=== PATIENT | male | born 1940 | race Caucasian/White ===

== ENCOUNTER → 2020-07-17 | Outpatient (CLI) | payer MEDICARE ==
--- NOTE | 2020-07-17 10:18 | RAD ---
MR#: [id number] Date of Study: 07/17/2020 Ordering Physician: BEBETO FUENTES, Referring Physician: BEBETO FUENTES, Tech: APPROVED REPORT Patient Location: OUT-PATIENT Indications LEG PAIN Risk Factors Grayscale images of the bilateral lower extremity arterial vessels demonstrate mild to moderate diffu se atherosclerosis. The bilateral peroneal arteries appear to be severely diseased with diminished v elocities. Otherwise mostly triphasic waveforms and biphasic waveforms from the common femoral arter y to the popliteal segment. Below the knee there is two-vessel runoff with moderate disease in the l eft side and no significant occlusion on the right side. VELOCITY AND DOPPLER WAVEFORM ANALYSIS RIGHT cm/secWaveformSeverity LEFT cm/secWaveform Severity pCFA 162.0TriphasicpCFA 190.0Biphasic Prof Fem Art. 116.0BiphasicProf Fem Art. 155.0Biphasic Fem Art Prox. 194.0TriphasicFem Art Prox. 148.0Biphasic Fem Art Mid. 128.0BiphasicFem Art Mid. 118.0Biphasic Fem Art Dist. 161.0BiphasicFem Art Dist. 89.0Biphasic Pop Art(Fossa) 114.0BiphasicPop Art(AK) 141.0Biphasic MOLD CAPPER Prox. 56.0MonophasicPTA Prox. 131.0Biphasic MOLD CAPPER Dist. 42.0MonophasicPTA Dist. 66.0Monophasic Per Art Dist.Per Art Dist.25.0Monophasic MYRIAM Prox. 62.0BiphasicATA Prox. 92.0Biphasic DPA 83BiphasicDPA 137Biphasic Critical Notification Critical Value: No <Conclusion> 1. No significant stenosis noted above the knee bilaterally with two-vessel runoff below the knees. 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
--- NOTE | 2020-07-17 10:20 | RAD ---
MR#: [id number] Date of Study: 07/17/2020 Ordering Physician: BEBETO UFENTES, Referring Physician: BEBETO FUENTES, Tech: APPROVED REPORT Patient Location: OUT-PATIENT Exam Type: Ankle to Brachial Index Indications Right side brachial pressure 172, ASSISTANT EDITOR 178, DPA 174 Left side brachial pressure 171, ASSISTANT EDITOR 157, DPA 162 Right MEGAN 1.0 Left MEGAN 0.9 Pressures/Indices RightABI LeftABI Brachial 580fnSe5.0Brachial 527ovVd0.9 Ankle(PT) 178mmHgAnkle(PT) 157mmHg Ankle(DP) 174mmHgAnkle(DP) 162mmHg Critical Notification Critical Value: No <Conclusion> 1. Normal bilateral MEGAN Signed by : Bebeto Fuentes, Electronically Approved : 07/17/2020 10:19:48
== END ==
LOC: US 08:52
PROVIDERS: ATTEND Internal Medicine Cardiovascular Disease
DX: I70.203 Unspecified atherosclerosis of native arteries of extremities, bilateral legs (principal)
CPT/HCPCS: 93922; 93925

== ENCOUNTER → 2020-12-11 | Outpatient (CLI) | payer MEDICARE ==
--- NOTE | 2020-12-11 16:42 | RAD ---
Right lower extremity venous Doppler ultrasound History: Reason: RLE PAIN AND TIGHTNESS IN CALF / Comparison: None. Procedure: Color flow Doppler, Doppler spectral analysis, and 2D images are obtained with and without compression in the area of the common femoral vein, superficial femoral vein - femoral vein junction , main femoral vein (superficial femoral vein) and popliteal vein. Veins of the proximal calf are als o imaged. Findings: There is normal color flow, augmentation, and compressibility of all visualized vein segments. No pérez dence of deep venous thrombus is present. There is complex fluid in the popliteal fossa measuring 4.2 x 2.9 x 1 cm. IMPRESSION: No evidence of right lower extremity deep venous thrombosis. Electronically signed by: Marco Pacheco MD (12/11/2020 4:40 PM) [id number]
== END ==
LOC: US 15:40
PROVIDERS: ATTEND Family Medicine
DX: M79.604 Pain in right leg (principal); R79.1 Abnormal coagulation profile
CPT/HCPCS: 93971

== ENCOUNTER → 2021-07-09 | Outpatient (CLI) | payer MEDICARE ==
[~2021-07-09] MED LIST: REGADENOSON 0.4 MG/5 ML DISP.SYRIN. IV ONE
--- NOTE | 2021-07-09 12:37 | RAD ---
Site ID: [id number] EXAMINATION: US DPLX CAROTID BILAT. Technique: Carotid arterial vascular ultrasound performed with pantoja scale and color doppler, wavefor m interrogation and flow velocity evaluation. INDICATION: 81 years Male Reason: CAROTID STENOSIS, HTN, HX OF SMOKING Findings: Color Doppler demonstrates patency of the common, internal, and external carotid arteries bilaterally . There is antegrade flow in the vertebral arteries demonstrated. Grayscale images demonstrate multifocal bilateral calcified atherosclerotic plaque along the carotid bifurcation more on the right side. Peak systolic velocity in the right ICA is 389 cm/s on the left side is 261 cm/s. ICA/CCA ratio is 2.7 on the right and 1.9 on the left. NOTE: Method of estimating the degree of stenosis is based on velocity criteria as defined by the [employer] i[employer] of Radiologists in Ultrasound Consensus Conference Radiology 2003. IMPRESSION: 1. There is significant elevated velocities seen in the right ICA up to 389 cm/s. Although the ICA ov er CCA ratio is a 2.7, the velocity measurement may suggest the ICA stenosis is more than 70 percent. 2. Elevated velocity in the left ICA with the underlying stenosis likely within the range of 50-69 pe rcent. 3. Further evaluation with CTA of the neck is recommended. Electronically signed by: Avni Soto MD (07/09/2021 12:34 PM) [id number]
--- NOTE | 2021-07-09 13:04 | RAD ---
MR#: [id number] Date of Study: 07/09/2021 Ordering Physician: BEBETO FUENTES, Referring Physician: NIKOLAS ROY Tech: RT Sherry (R) (N) APPROVED REPORT Test Type: Pharmacological Stress Nurse/Tech: Moo / Evon Weeks Test Indications: CAD Cardiac History: Hypertension, 3 previous stents, Bypass 1995 Medications: See EHR Resting Heart Rate: 55 bpm Resting Blood Pressure: 196/68mmHg Pretest Chest Pain: None Pharm. Details Pharmacologic stress testing was performed using 0.4mg per 5ml of regadenoson given intravenously ove r 7-10 seconds. Stress Symptoms Dyspnea POST EXERCISE Reason for Termination: Infusion complete Max HR: 107 bpm Max Blood Pressure: 187/61mmHg Blood Pressure response to exercise: Normal blood pressure response during stress. Heart Rate response to exercise: Increased Chest Pain: No. Arrhythmia: No. ST Change: No. INTERPRETATION Stress EKG Conclusion: Baseline EKG showed sinus rhythm. No ischemic changes at peak stress. No arr hythmias. Imaging Protocol IMAGE PROTOCOL: Rest Tc-99m/stress Tc-99m 1 day Rest: Stress: Viability: Radiopharm.Tc99m VcoznryqoVz14h Sestamibi Wskv2cEv 33mCi Duration 15min. 15min. Img Date 07/09/2021 07/09/2021 Inj-Img Tobf06tum. 55min. Rest Admin Site:IV - Left AntecubitalAdministrator: RT Sherry (R)(N) Stress Admin Site: IV - Left AntecubitalAdministrator: RT Sherry (R)(N) STRESS DATA End Diast. Vol.113.0mlAv. Heart Rate78.0bpm End Syst. Vol.32.0mlCO Index BSA0.0L/min Myocardial Bvrg468.0gEject. Zsvuxnum26.0% Stress Rates Pk. Fill Rate3.01EDV/secLVtime Pk. Fill 206.69msec Pk. Empty Rate4.60ESV/secLVtime Pk. Obyyy053.48msec 07/29 Pk. Fill1.06EDV/sec Stress Scores Regional WT1.00Summed WT3.00 Regional WM0.00Summed WM1.00 Study quality was good. Left Ventricular size was Normal at Rest and Stress. Lung uptake was . Left Ventricular ejection fraction is 72%. The rest and stress images show normal perfusion, normal contraction and thickening. LV Perf. Quant 17 Seg. SSS3.00 17 Seg. SRS0.00 17 Seg. SDS3.00 Stress Defect Extent (% LAD)0.00Rest Defect Extent (% LAD)0.00Rev. Defect Extent (% LAD)0.00 Stress Defect Extent (% LCX) 18.80Rest Defect Extent (% LCX)0.00Rev. Defect Extent (% LCX)18.80 Stress Defect Extent (% RCA)0.00Rest Defect Extent (% RCA)0.00Rev. Defect Extent (% RCA)0.00 Stress Defect Extent (% ADRIANA)4.30Rest Defect Extent (% ADRIANA)0.00Rev. Defect Extent (% ADRIANA)4.10 Conclusion 1. Regadenoson cardioisotope stress test did not show any evidence of ischemia or infarct. 2. Normal left ventricular systolic function with ejection fraction calculated at 72%. 3. Low risk for cardiac events. Signed by : Demario Joy, Electronically Approved : 07/09/2021 13:04:11
== END ==
LOC: NM 07:53
PROVIDERS: ATTEND Internal Medicine Cardiovascular Disease
DX: I65.23 Occlusion and stenosis of bilateral carotid arteries (principal); I25.10 Atherosclerotic heart disease of native coronary artery without angina pectoris; I10 Essential (primary) hypertension; Z87.891 Personal history of nicotine dependence
CPT/HCPCS: 78452; 93017; 93880; A9500; J2785